=== PATIENT | male | born 1980 | race African-American/Black ===

== ENCOUNTER 2018-06-24 12:53 | Emergency (ER) | payer MEDICAID ==
[~2018-06-24] VITALS: Ht 185.4 cm; Wt 90.7 kg
[2018-06-24 13:04] VITALS: BP 135/70
[2018-06-24] MEDS ORDERED: KETOROLAC 60 MG/2 ML VIAL IM ONE (13:10)
--- NOTE | 2018-06-24 13:16 | NUR ---
38/M C/O LEFT KNEE PAIN MECHANICAL FALL X 2 DAYS AGO. STATES UNABLE TO BEAR FULL WEIGHT. PATIENT STATES PAIN OF 10/10 AT THIS TIME. PATIENT POSITIONED FOR COMFORT; HOB ELEVATED; BEDRAILS UP X2; BED DOWN. ER MD MADE AWARE OF PT STATUS.
--- NOTE | 2018-06-24 13:22 | NUR ---
X RAY AT BEDSIDE.
--- NOTE | 2018-06-24 13:49 | NUR ---
Patient being evaluated by DR CARDOZA at bedside.
--- NOTE | 2018-06-24 14:04 | NUR ---
Patient discharged with v/s stable. Written and verbal after care instructions given and explained. Patient alert, oriented and verbalized understanding of instructions. with CRUTCHES. All questions addressed prior to discharge. ID band removed. Patient advised to follow up with PMD. Rx of MOTRIN given. Patient educated on indication of medication including possible reaction and side effects. Opportunity to ask questions provided and answered.
[2018-06-24 14:06] VITALS: BP 135/70
== END 2018-06-24 14:04 | disposition home or self-care (01) ==
LOC: MED 12:53
DX: S83.92XA Sprain of unspecified site of left knee, initial encounter (principal); F17.210 Nicotine dependence, cigarettes, uncomplicated; W01.0XXA Fall on same level from slipping, tripping and stumbling without subsequent striking against object, initial encounter; Y93.89 Activity, other specified; Y92.89 Other specified places as the place of occurrence of the external cause; Y99.8 Other external cause status
CPT/HCPCS: 73562; 96372; 99283; J1885

== ENCOUNTER 2018-08-19 13:03 | Emergency (ER) | payer BC, MEDICAID ==
[~2018-08-19] VITALS: Ht 185.4 cm; Wt 90.0 kg
[2018-08-19 13:10] VITALS: BP 142/91
--- NOTE | 2018-08-19 15:09 | NUR ---
CALLED FROM LOBBY AT THIS TIME NO ANSWER PATIENT IS LWBS.
== END 2018-08-19 15:00 | disposition left against medical advice (07) ==
LOC: MED 13:03
DX: M25.562 Pain in left knee (principal); Z53.21 Procedure and treatment not carried out due to patient leaving prior to being seen by health care provider

== ENCOUNTER 2020-04-13 13:16 | Emergency (ER) | payer BC, MEDICAID ==
[~2020-04-13] VITALS: Ht 185.4 cm; Wt 93.0 kg
--- NOTE | 2020-04-13 13:20 | NUR ---
PT AMBULATED TO BED 4.
[2020-04-13 13:30] VITALS: BP 141/99
--- NOTE | 2020-04-13 13:32 | NUR ---
40 YEAR OLD MALE COMPLAINS OF LEFT KNEE PAIN THAT HAS BEEN ON/OFF X 2 YEARS AGO. PT STATES THAT SOMETIMES HE FEELS LIKE HIS KNEE WOULD COME OUT OF PLACE AND IT IS UNCOMFORTABLE. PT AOX4, BREATHING EVEN AND UNLABORED, SKIN WARM AND DRY. BED IN LOWEST POSITION, LOCKED, BED RAIL UPX1. PMH - DENIES ALLERGIES - NKA
--- NOTE | 2020-04-13 14:20 | NUR ---
Patient discharged with v/s stable. Written and verbal after care instructions about knee immobilization given and explained. Patient alert, oriented and verbalized understanding of instructions. Ambulatory with steady gait. All questions addressed prior to discharge. ID band removed. Patient advised to follow up with PMD. Rx of ibuprofen given. Patient educated on indication of medication including possible reaction and side effects. Opportunity to ask questions provided and answered.
[2020-04-13 14:22] VITALS: BP 141/99
== END 2020-04-13 14:20 | disposition home or self-care (01) ==
LOC: MED 13:16
DX: M25.562 Pain in left knee (principal)
CPT/HCPCS: 73502; 99283; Q0092; 29505

== ENCOUNTER 2020-05-28 08:34 | Emergency (ER) | payer MEDICAID ==
[~2020-05-28] VITALS: Ht 185.4 cm; Wt 93.9 kg
[2020-05-28 08:35] VITALS: BP 154/84
--- NOTE | 2020-05-28 08:36 | NUR ---
Melisa narvaez in ED - 05/28/20 at 0837 by SANCHO PT IS BEING TAKEN TO CT SCAN VIA WC.
--- NOTE | 2020-05-28 08:40 | NUR ---
PT C/O LEFT UPPER MOLAR PAIN X1 MONTH. DENIES FEVER, CHILLS.
--- NOTE | 2020-05-28 08:40 | NUR ---
patient ambulated to bed 12.
[2020-05-28 09:13] VITALS: BP 143/81
--- NOTE | 2020-05-28 09:13 | NUR ---
Patient discharged with v/s stable. Written and verbal after care instructions given and explained. Patient alert, oriented and verbalized understanding of instructions. Ambulatory with steady gait. All questions addressed prior to discharge. ID band removed. Patient advised to follow up with PMD. Rx of Motrin and Ibuprofen given. Patient educated on indication of medication including possible reaction and side effects. Opportunity to ask questions provided and answered.
== END 2020-05-28 09:13 | disposition home or self-care (01) ==
LOC: MED 08:34
DX: K08.89 Other specified disorders of teeth and supporting structures (principal); K02.9 Dental caries, unspecified; Z76.0 Encounter for issue of repeat prescription
CPT/HCPCS: 99281; 99282